=== PATIENT | male | born 1950 | race Caucasian/White ===

== ENCOUNTER 2024-06-04 06:26 | Day surgery (SDC) | payer OTHER, SELFPAY | END 2024-06-04 11:31 | disposition home or self-care (01) | LOC: GI 06:26 | PROVIDERS: ATTENDING PHYSICIAN Internal Medicine Gastroenterology | DX: Z12.11 Encounter for screening for malignant neoplasm of colon (principal); K64.8 Other hemorrhoids; D12.8 Benign neoplasm of rectum; Z86.0100 Personal history of colon polyps, unspecified | CPT/HCPCS: 45380; 88305 ==